=== PATIENT | female | born 1950 | race Two or more races ===

== ENCOUNTER → 2017-11-20 | Emergency (ER) | payer OTHER ==
[~2017-11-20] VITALS: Ht 152.4 cm; Wt 72.6 kg
[~2017-11-20] MED LIST: AMPICILLIN TRI500 MG
== END | disposition home or self-care (01) ==
LOC: ER 18:39
DX: R51 Headache (principal)

== ENCOUNTER 2024-01-06 01:28 | Emergency (ER) | payer OTHER ==
[~2024-01-06] VITALS: Ht 152.4 cm; Wt 79.4 kg
[2024-01-06] MEDS ORDERED: ALL DAY ALLERGY10 M3 (01:42)
[2024-01-06] MEDS ORDERED: NIFEDIPINE20 MG (01:42)
[2024-01-06] MEDS ORDERED: TOPROL XL50 M1 (01:42)
[2024-01-06] MEDS ORDERED: MONTELUKAST SODI4 M1 (01:43)
[2024-01-06] MEDS ORDERED: XARELTO20 MG (01:43)
[2024-01-06] MEDS ORDERED: 0.9 % SODIUM CHLORIDE 1,000 ML IV STA (02:04)
[2024-01-06] MEDS ORDERED: METOCLOPRAMIDE HCL 5 MG/ML VIAL IM STA (02:05)
[2024-01-06] MEDS ORDERED: ONDANSETRON HCL 2 MG/ML VIAL IV STA (02:06)
[2024-01-06] MEDS ORDERED: FAMOtidine 10 MG/ML (4ML VIAL) IV PUSH STA (02:07)
[2024-01-06] MEDS ORDERED: BISMUTH SUBSALICYLATE 524 MG/30 ML BLIST.PACK PO STA (02:07)
[2024-01-06] MEDS ORDERED: DIPHENOXYLATE HCL/ATROPINE 1 UDTAB TABLET PO STA (02:08)
[2024-01-06] MEDS ORDERED: HYOSCYAMINE SULFATE 0.125 MG TAB.SUBL SL ONE (02:15)
[2024-01-06 03:58] LABS: HEMATOCRIT 36.7 % (36.0-45.00); PLATELET COUNT 248 K/uL (150-450); RED BLOOD COUNT 5.01 M/uL (4.00-6.00); RED CELL DISTRIBUTION WIDTH 16.2 % (11.5-14.5)
[2024-01-06 04:00] LABS: HEMOGLOBIN 11.7 g/dL (12.0-15.00); MEAN CELL VOLUME 73.2 fL (80.00-100.00)
[2024-01-06 04:01] LABS: MEAN CORPUSCULAR HEMOGLOBIN 23.3 pg (27.00-32.0)
[2024-01-06 04:23] LABS: CALCIUM 9.4 mg/dL (8.5-10.1); CREATININE SERUM 0.76 mg/dL (0.55-1.02); GFR 74.39; POTASSIUM 3.8 mEq/L (3.5-5.1)
[2024-01-06] MEDS ORDERED: CEFAZOLIN SODIUM 1,000 MG VIAL IV STA (04:24)
== END 2024-01-06 05:46 | disposition home or self-care (01) ==
LOC: EDBD 01:30 → ER 01:30
DX: K52.9 Noninfective gastroenteritis and colitis, unspecified (principal); R11.10 Vomiting, unspecified; Z88.6 Allergy status to analgesic agent
CPT/HCPCS: 36415; 96365; 96366; 96372; 99282; J0690; J2405; J2765; J3490; J7030

== ENCOUNTER 2024-02-20 20:13 | Emergency (ER) | payer OTHER ==
[~2024-02-20] VITALS: Ht 152.4 cm; Wt 73.5 kg
[~2024-02-20 20:13] MED LIST changes: +ALL DAY ALLERGY10 M3; +MONTELUKAST SODI4 M1; +NIFEDIPINE20 MG; +TOPROL XL50 M1; +XARELTO20 MG
[2024-02-20 20:54] VITALS: BP 160/80; O2SAT 96
[2024-02-20] MEDS ORDERED: DILTIAZEM HCL 25 MG/5 ML VIAL IV ONE ×2 (22:30→23:23)
[2024-02-20] MEDS ORDERED: GUAIFENESIN/DEXTROMETHORPHAN 5ML BLIST.PACK PO ONE (23:15)
[2024-02-20] MEDS ORDERED: GUAIFEN/DEXTROMETHORPHAN/PE 10 ML BLIST.PACK PO ONE (23:23)
[2024-02-21 00:34] LABS: URINE APPEARANCE Clear; URINE BILIRRUBIN Negative (NEGATIVE); URINE BLOOD Negative; URINE COLOR Yellow; URINE GLUCOSE Negative (NEGATIVE); URINE KETONE Negative (NEGATIVE); URINE LEUKOCYTE Moderate; URINE NITRATE Negative; URINE PROTEIN Negative (NEGATIVE); URINE UROBILINOGEN 0.2 E.U./dl
[2024-02-21 00:37] LABS: URINE BACTERIA 462.4 uL (0.0-1933); URINE EPITHELIAL CELLS 54.1 uL (0.0-38.8); URINE RBC 2.2 uL (0.0-20.8); URINE WBC 63.1 uL (0.0-23.2)
[2024-02-21 00:43] LABS: URINE CAST 0.14 uL (0.0-1.40)
[2024-02-21 00:55] LABS: HEMATOCRIT 37.9 % (36.0-45.00); HEMOGLOBIN 12.2 g/dL (12.0-15.00); MEAN CELL VOLUME 71.2 fL (80.00-100.00); MEAN CORPUSCULAR HEMOGLOBIN 22.9 pg (27.00-32.0); MEAN CORPUSCULAR HGB CONC 32.1 g/dl (32.0-36.0); PLATELET COUNT 205 K/uL (150-450); RED BLOOD COUNT 5.32 M/uL (4.00-6.00); RED CELL DISTRIBUTION WIDTH 16.3 % (11.5-14.5)
[2024-02-21 00:59] LABS: ALBUMIN 3.3 gm/dL (3.4-5.0); BILIRUBIN TOTAL 0.6 mg/dL (0.3-1.2); CALCIUM 9.1 mg/dL (8.5-10.1); CREATININE SERUM 0.63 mg/dL (0.55-1.02); GFR 92.12; GLOBULINA 3.6 G/DL (2.4-3.5); POTASSIUM 3.64 mEq/L (3.5-5.1); TOTAL PROTEIN 6.9 gm/dL (6.4-8.2)
== END 2024-02-21 02:39 | disposition home or self-care (01) ==
LOC: ER 20:15
PROVIDERS: Emergency Medicine
DX: J06.9 Acute upper respiratory infection, unspecified (principal); R05.9 Cough, unspecified; I10 Essential (primary) hypertension; Z88.8 Allergy status to other drugs, medicaments and biological substances

== ENCOUNTER 2024-03-07 18:42 | Emergency (ER) | payer OTHER ==
[~2024-03-07] VITALS: Ht 160 cm; Wt 67.1 kg
[2024-03-07] MEDS ORDERED: COZAAR100 MG (18:56)
[2024-03-07] MEDS ORDERED: HYDROCODONE/CHLORPHEN P-STIREX 5 ML ML PO STA (19:39)
[2024-03-07] MEDS ORDERED: CEFTRIAXONE SODIUM 2,000 MG VIAL IV STA (19:40)
[2024-03-07] MEDS ORDERED: LEVALBUTEROL HCL 1.25 MG/3 ML SOLUTION IH STA (19:41)
[2024-03-07] MEDS ORDERED: CEFTRIAXONE SODIUM 2,000 MG VIAL ONE (19:51)
[2024-03-07 20:07] LABS: HEMOGLOBIN 11.9 g/dL (12.0-15.00); MEAN CELL VOLUME 70.2 fL (80.00-100.00); MEAN CORPUSCULAR HEMOGLOBIN 22.5 pg (27.00-32.0); MEAN CORPUSCULAR HGB CONC 32.1 g/dl (32.0-36.0); PLATELET COUNT 299 K/uL (150-450); RED BLOOD COUNT 5.27 M/uL (4.00-6.00); RED CELL DISTRIBUTION WIDTH 16.1 % (11.5-14.5)
[2024-03-07] MEDS ORDERED: IPRATROPIUM/ALBUTEROL SULFATE 3 ML AMPUL.NEB IH ONE (20:58)
== END 2024-03-07 22:22 | disposition home or self-care (01) ==
LOC: ER 18:44
DX: J40 Bronchitis, not specified as acute or chronic (principal); R00.2 Palpitations; Z20.822 Contact with and (suspected) exposure to COVID-19; Z88.8 Allergy status to other drugs, medicaments and biological substances